=== PATIENT | female | born 1955 | race Caucasian/White ===

== ENCOUNTER 2017-08-13 15:58 | Emergency (ER) | payer SELFPAY ==
[~2017-08-13] VITALS: Ht 154.9 cm; Wt 49.9 kg
[2017-08-13] MEDS ORDERED: PROZAC 20MG CAP20 MG PO (16:01)
--- NOTE | 2017-08-13 16:19 | Emergency Room Report ---
History of Present Illness Time Seen by MD Mcconnell Presenting Problem in Triage Pt arrived: Presenting Problem: Onset of symptoms date/time:/ or onset unknown for: Treatment Prior to Arrival: [employer] Provided by: Sepsis Risk Assessment: Temp: B/P: MAP: Pulse: Resp: Recent fever? Clinical Suspician of Infection? Mental Status: Sepsis Risk: Have you (or family members/close friends) recently traveled outside the [place]? If Yes, where/when: Have you had exposure to infectious disease within the past month? TB? Other? Specify: 61 years old white female who developed diarrhea for the last 3 days only stent times a day and she started vomiting today. She denies having fever or chills she denies having hematemesis hematochezia melenic stool or coffee-ground emesis. Source patient, RN notes reviewed Exam Limitations no limitations ALLERGIES Coded Allergies: No Known Allergies (08/13/17) Home Medications Reported Medications Fluoxetine Hcl (Prozac 20MG Capsule(Generic)) 20 MG PO QHS History Medical History General CAD? No Angina: No [place]: No Hypertension? No Hyperlipidemia? No CHF? No DVT? No PE? No COPD? No Asthma? No Anemia? No GERD? No Gastric ulcers? No GI Bleed? No Hernia? No Thyroid Problems? No Hypothyroidism? No CVA? No Seizures? No Diabetes? No Renal Insuffiency? No End Stage Renal Disease? No UTI? No Stones? No GB Disease: No Nephritic Syndrome? No Asplenia? No Hepatitis? No Sickle Cell Disease? No Arthritis? No Migraines? No Cataracts? No Glaucoma? No MRSA? No HIV? No TB? No Anxiety? No Depression? Yes Cancer? No More? No Surgical Hx Previous Surgery?Y PYLINIDIAL CYST TORN MUSCLE REPAIR Review of Systems All Other Systems Reviewed and Negative Constitutional no symptoms reported Eyes no symptoms reported ENT no symptoms reported. Respiratory no symptoms reported Cardiovascular no symptoms reported Gastrointestinal see HPI, diarrhea, nausea, vomiting Genitourinary no symptoms reported. Musculoskeletal no symptoms reported Skin no symptoms reported Psychiatric/Neurological no symptoms reported Physical Exam Vital Signs Vital Signs Date Time Temp Pulse Resp B/P Pulse O2 O2 Flow FiO2 Ox Delivery Rate 08/13 1831 109 20 102/71 98 08/13 1748 118 20 132/70 98 08/13 1650 127 20 130/87 97 08/13 1558 99.1 82 20 116/58 96 - WBC >12,000 or <4,000 or 10% bands? 2 or more SIRS Criteria Met? B/P:116/58 MAP:77 Creatinine >2.0? UA output<0.5ml/kg/hr for 2 hrs? Platelet count >100,000? Lactate >2.0mmol/1? INR >1.2 or PTT > than 60 sec? Evidence of Organ Dysfunction? Provider documented clinical suspician of infection? N Sepsis Criteria Count: 1 Sepsis Risk: Low Sepsis Risk General Appearance normal appearance, WD/WN Eye Exam - bilateral eye normal exam, bilateral eye PERRL, bilateral eye EOMI Ear, Nose, Throat hearing grossly normal, normal ENT inspection Neck normal inspection, non-tender, supple, full range of motion Respiratory Status Yes: trachea midline, chest symmetrical, non tender chest. No: respiratory distress. Lung Sounds bilateral: normal breath sounds, lungs clear. Cardiovascular normal exam, regular rate/rhythm, no peripheral edema, no gallop, no JVD, no murmur, no rub, normal peripheral pulses Peripheral Pulses Pulses normal Yes Gastrointestinal soft, no guarding, no rebound, tenderness, soft abdomen with mild diffuse tenderness no guarding or rigidity diminished bowel sounds Back normal inspection, no CVA tenderness, no vertebral tenderness Extremities non-tender, normal range of motion, normal inspection Neurologic alert, yard hostler II-XII nml as tested, normal exam, oriented x 3 Reflexes Reflexes normal Yes Mental status normal mood/affect Skin intact, normal color, warm/dry Lymphatic no adenopathy Medical Decision Making LABS/Meds/Orders Pt receiving controlled substance in ED? No Results/Orders Laboratory Tests 08/13/17 1618: Magnesium 1.5 08/13/17 1618: Sodium 133 L, Potassium 3.8, Chloride 100, Carbon Dioxide 24, BUN 11, Creatinine 0.8, Estimated Creat Clear 57, Estimated GFR (MDRD) 72, Glucose 119 H, Calcium 8.1 L, Total Bilirubin 0.4, AST 60 H, ALT 40, Alkaline Phosphatase 85, Total Protein 5.5 L, Albumin 1.8 L, Globulin 3.7 H, Albumin/Globulin Ratio 0.5 L, WBC 8.6, RBC 5.08, Hgb 13.2, Hct 41.3, MCV 81.4 L, RDW 14.7, Plt Count 528 H, MPV 7.2 L, Gran % 83.8 H, Gran # 7.2, Lymphocytes % 7.0 L, Monocytes % 7.8, Eosinophils % 0.6, Basophils % 0.7, Lymphocytes # 0.6 L, Monocytes # 0.7, Eosinophils # 0.1, Basophils # 0.1, PUBS MCHC 31.9, MCH 26.0 L Current Medication Orders Sig/Steven Start time Last Medication Dose Route Stop Time Status Admin Magnesium Sulfate 1 GM ONCE ONE 08/13 1830 AC Sodium Chloride 50 ML IV 08/13 1900 Loperamide HCl 0 .STK-MED ONE 08/13 1816 DC PO Loperamide HCl 4 MG ONCE ONE 08/13 1800 DC 08/13 PO 08/13 1801 1817 Magnesium Oxide 400 MG ONCE ONE 08/13 1800 DC PO 08/13 1801 Sodium Chloride 1,000 ML .STK-MED ONE 08/13 1656 DC IV Ondansetron HCl 0 .STK-MED ONE 08/13 1655 DC .ROUTE Ondansetron HCl 4 MG ONCE ONE 08/13 1630 DC 08/13 IV 08/13 1631 1658 Sodium Chloride 1,000 ML .Q1H1M 08/13 1630 DC 08/13 IV 08/13 1730 1658 Sodium Chloride 10 ML PRN PRN 08/13 1630 AC IV 08/14 1618 Sodium Chloride 10 ML PRN PRN 08/13 1600 AC IV 08/14 1559 Sodium Chloride 10 ML PRN PRN 08/13 1600 AC IV 08/14 1559 Orders Procedure Date/time Status ABD ACUTE(MUL VIEWS) 08/13 1632 Active MAGNESIUM 08/13 1632 Complete DIARRHEA PANEL, PCR 08/13 1632 Active IV SALINE LOCK 08/13 1600 Active URINALYSIS/COMPLETE 08/13 1600 Active CBC WITH AUTO DIFF 08/13 1600 Complete CHEM 12 PROFILE 08/13 1600 Complete XRAY/CT/US XRAY/CT/US XRAY chest, abdomen XR interpretation by reviewed by me Xray Results normal/NAD Comment no acute findings Departure Departure Time of Disposition 185 Disposition DC Home or Self Care(routine) Clinical Impression Primary Impression: Diarrhea Secondary Impressions: Hypomagnesemia Condition STABLE Referrals BROCK GARNICA, VERNA (Family) Additional Instructions 1- gotrade 16 oz q 4 2- observe 4-5 uop a day 3- BRAT diet tomorrow. 4- zofran 5-imodium 6- flagyl 7- see Dr Garcia in AM on final x ray report and recheck 8- return as needed Discharge Counseling Counseled pt/family regarding diagnosis, test results, medications/RX, follow up needs Prescriptions Current Visit Scripts Ondansetron (Zofran Odt) 4 MG PO Q6HP PRN nausea #6 ODT Loperamide HCl (Imodium A-D) 2 MG PO Q6HP PRN diarrhea #12 CAPSULE Metronidazole (Flagyl) 250 MG PO Q8 #21 TAB ED Critical Care Critical Care No If Critical Care minutes are documented, the time involved in the performance of seperately reportable procedures was not counted toward critical care time documented. I directly delivered medical care to this critically ill and/or injured patient. Timely evaluation and treatment was necessary to address the significant organ system(s) dysfunction present in this patient. at 2601
[2017-08-13 16:31] LABS: HEMOGLOBIN 13.2 g/dL (12.2-16.2); LYMPH # 0.6 K/mm3 (0.7-4.5)
--- OUTSIDE RECORDS SUMMARY | 2017-08-13 16:40 | External Medical Summary Rpt | CCD ---
Author Author [employer] Organization [employer] Address Unknown Phone Unavailable Purpose Continuity of Care Document - through 2016
--- OUTSIDE RECORDS SUMMARY | 2017-08-13 16:40 | External Medical Summary Rpt | CCD ---
Demographics Preferred Language Citizen Of [place] Marital Status Unknown Spiritism Affiliation Unknown Race Unknown Ethnic Group Unknown Author Author , DANITZA BOSCH Address Unknown Phone Immunization No patient found.
--- OUTSIDE RECORDS SUMMARY | 2017-08-13 16:40 | External Medical Summary Rpt ---
Author Author DANITZA Porras, DANITZA Porras Organization [employer] Address Unknown Phone Unavailable
--- OUTSIDE RECORDS SUMMARY | 2017-08-13 16:40 | External Medical Summary Rpt | CCD ---
Demographics Preferred Language Peruvian Marital Status Unknown Gnosticist Affiliation Unknown Race Unknown Ethnic Group Unknown Author Author , DANITZA BOSCH Address Unknown Phone Immunization No patient found.
--- OUTSIDE RECORDS SUMMARY | 2017-08-13 16:40 | External Medical Summary Rpt | CCD ---
Author Author DANITZA Address Unknown Phone Purpose Continuity of Care Document - through 2016
[2017-08-13] MEDS ORDERED: Zofran4 MG PO (18:57)
[2017-08-13] MEDS ORDERED: IMODIUM A-D2 M3 PO (18:57)
[2017-08-13] MEDS ORDERED: FLAGYL250 MG PO (18:57)
--- NOTE | 2017-08-13 19:26 | RADIOLOGY REPORT PS360 ---
ABD ACUTE(MUL VIEWS) HISTORY: Fever, diarrhea, smoker, tobacco abuse diarrhea ORDERING PHYSICIAN: Kenneth Sam MD PATIENT AGE: 61 years COMPARISON: None FINDINGS: Frontal view of the chest shows evidence of old granulomatous disease. No lobar consolidation or collapse. Normal heart size. Upright and supine views of the abdomen show nonspecific nonobstructive bowel gas pattern. No urolithiasis or acute bony anomalies. IMPRESSION: No acute finding
[2017-08-13 20:32] VITALS: BP 101/62
== END 2017-08-13 20:33 | disposition home or self-care (01) ==
LOC: ER 15:58
PROVIDERS: Emergency Medicine
DX: R19.7 Diarrhea, unspecified (principal); E83.42 Hypomagnesemia; F32.9 Major depressive disorder, single episode, unspecified
CPT/HCPCS: J2405